=== PATIENT | male | born 1950 | race Caucasian/White ===

== ENCOUNTER 2018-02-24 15:20 | Emergency (ER) | payer OTHER ==
--- NOTE | 2018-02-24 16:35 | RAD REPORT ---
EXAM DESCRIPTION: RAD - Chest Single View - 02/24/2018 4:29 pm CLINICAL HISTORY: Cough, shortness of breath COMPARISON: August 2016 TECHNIQUE: AP portable chest image was obtained 1626 hours . FINDINGS: Interstitial fibrotic lung pattern present that matches the prior study. No superimposed f ailure, infiltrate or mass. Heart and vasculature are normal. No measurable pleural effusion and no p neumothorax. No acute bone finding suspected. Chronic degenerative change present at the right should er joint and AC joint. No acute aortic findings suspected. IMPRESSION: Chronic interstitial lung disease matching 2017 imaging. No acute findings seen.
[2018-02-24] MEDS ORDERED: IPRATROPIUM BROM 0.5MG/2.5ML ONE (16:36)
[2018-02-24] MEDS ORDERED: ALBUTEROL 2.5 MG/3 ML NEB SOL ONE (16:36)
[2018-02-24] MEDS ORDERED: HYDROCODONE/CHLORPHEN 5 ML/OSYR ONE (16:37)
--- NOTE | 2018-02-24 16:44 | EKG ---
Test Date: 2018-02-24 Test Time: 16:19:44 Mechanical Striper: MARGRET MEASUREMENT RESULTS: Intervals: Rate: 91 ID: [id number] QRSD: 118 QT: 386 QTc: 474 Dieterich: P: 67 ID: [id number] QRS: -5 T: 40 INTERPRETIVE STATEMENTS: Normal sinus rhythm Right bundle branch block Abnormal ECG Compared to ECG 08/29/2016 14:39:34 Myocardial infarct finding no longer present Electronically Signed On 02-24-18 16:43:42 CDT by Erlin Bland
[2018-02-24 16:54] LABS: Absolute Lymphocytes (CBC) 0.7 K/uL (0.7-4.9); Absolute Monocytes 0.5 K/uL (0.1-1.3); Absolute Neutrophil 5.6 K/uL (1.8-8.0); Basophils % 0.3 % (0-1.3); Eosinophils % 0.1 % (0-4.4); Hematocrit 37.6 % (39.6-49.0); Lymphocytes % 10.2 % (15.3-44.8); MCH 31.1 pg (27.0-35.0); MCV 93.2 fL (80-100); MPV 8.8 fL (7.6-11.3); Monocytes % 7.7 % (3.3-12.3); RBC Red Blood Cell Count 4.04 M/uL (4.33-5.43)
[2018-02-24 16:59] LABS: Protime INR 1.02
[2018-02-24 17:12] LABS: Albumin 3.7 g/dL (3.4-5.0); Bilirubin Direct 0.1 mg/dL (0-0.2); Bilirubin Total 0.5 mg/dL (0.2-1.0); CKMB Creatine Kinase MB 3.6 ng/mL (0.3-3.6); Magnesium 2.1 mg/dL (1.8-2.4); Protein, Total 7.4 g/dL (6.4-8.2)
[2018-02-24 18:36] LABS: Urine Blood NEGATIVE (NEG); Urine Glucose 2+ (NEG); Urine Protein NEGATIVE (NEG); Urine Specific Gravity >1.030 (1.005-1.030); Urine pH 5.5 (5.0-7.0)
--- NOTE | 2018-02-24 18:37 | RAD REPORT ---
EXAM DESCRIPTION: CT - Chest For Pe Angio - 02/24/2018 6:14 pm CLINICAL HISTORY: Shortness of breath COMPARISON: None. TECHNIQUE: Dynamically enhanced axial 3 mm thick images of the chest were obtained during administra tion of <100> mL Isovue 370 IV contrast. Coronal and oblique reconstruction images were generated and reviewed. Exam utilizes a protocol for optimal evaluation of pulmonary arterial tree. Maximum intensity projections 3D imaging was utilized All CT scans are performed using dose optimization technique as appropriate and may include automated exposure control or mA/KV adjustment according to patient size. FINDINGS: A pulmonary embolus is not seen. A thoracic aortic aneurysm is not noted. A pleural effusion is not seen. A pericardial effusion is not seen. A lung consolidation is not present. A minimal ground-glass opacity is present within the right upper lobe Fatty infiltration liver seen. IMPRESSION: Negative for a pulmonary embolism.
--- NOTE | 2018-02-24 18:41 | RAD REPORT ---
EXAM DESCRIPTION: CT - Abdomen Pelvis W Contrast - 02/24/2018 6:14 pm CLINICAL HISTORY: Abdominal pain COMPARISON: none. TECHNIQUE: Computed axial tomography of the abdomen pelvis was obtained. 100 cc Isovue-300 was admin istered intravenously. Oral contrast was not requested which limits evaluation of bowel. All CT scans are performed using dose optimization technique as appropriate and may include automated exposure control or mA/KV adjustment according to patient size. FINDINGS: The liver has a diminished attenuation consistent with fatty infiltration The spleen, pancreas, adrenals and kidneys appear unremarkable. . There is no evidence of diverticulitis. Postsurgical changes of a sigmoidectomy are seen. Spondylosis involves lumbar spine resulting in marked spinal stenosis IMPRESSION: No acute abnormality is displayed.
[2018-02-24] MEDS ORDERED: METHYLPREDNISOLONE 125 MG INJ ONE (18:56)
[2018-02-24] MEDS ORDERED: KETOROLAC 30 MG/ML INJ ONE (18:56)
--- NOTE | 2018-02-24 19:34 | EDPHYS ---
Physician Documentation [facility] Name: Krishan Coates Age: 68 yrs Sex: Male : 1950 Arrival Date: 02/24/2018 Time: 15:24 Bed 26 Private MD: None, None ED Physician Wilfredo Butler HPI: 02/24 16:12 This 68 yrs old Male presents to ER via Ambulatory with complaints of cp Shortness Of Breath. 16:12 The patient has shortness of breath with light activity. cp 16:12 Onset: The symptoms/episode began/occurred gradually, and became worse today. Duration: cp The symptoms are continuous, and are steadily getting worse. Associated signs and symptoms: Pertinent positives: productive cough, diaphoresis, nausea, lower right abdominal pain, Pertinent negatives: chest pain, fever, hemoptysis, vomiting. The symptoms do not radiate. Historical: - Allergies: 15:49 No Known Allergies; ph - Home Meds: 15:49 temazepam 30 mg Oral cap 1 cap once daily [Active]; levothyroxine 100 mcg tab 1 tab ph once daily [Active]; sildenafil 20 mg oral tab daily [Active]; pantoprazole 40 mg oral TbEC 1 tab once daily [Active]; cyclobenzaprine 10 mg Oral tab 1 tab four times a day [Active]; Rodney Chewable Aspirin 81 mg oral chew 1 tab once daily [Active]; nclwmtt-tgqcmeuwf-tjvbfxxzcucv 65-100-325 mg oral cap 1-2 caps q4h [Active]; Symbicort 160-4.5 mcg/actuation inhalation HFAA 2 puffs 2 times per day [Active]; Spiriva Respimat 2.5 mcg/actuation inhalation mist 2 puffs once daily [Active]; pravastatin 10 mg oral tab 1 tab once daily [Active]; prednisone 10 mg Oral tab 7 day taper [Active]; fludrocortisone 0.1 mg oral tab 1 tab once daily [Active]; Sumatriptan Sub-Q [Active]; - PMHx: 15:49 Asthma; Thyroid problem; COPD; Pneumonia; ph - PSHx: 20:09 None; bs1 - Immunization history:: Pneumococcal vaccine is up to date, Flu vaccine is up to date. - Social history:: Smoking status: Patient/guardian denies using tobacco. - Ebola Screening: : Patient negative for fever greater than or equal to 101.5 degrees Fahrenheit, and additional compatible Ebola Virus Disease symptoms Patient denies exposure to infectious person Patient reports travel to an Ebola-affected area in the 21 days before illness onset. Patient reports to have traveled to [place]. ROS: 16:13 Eyes: Negative for injury, pain, redness, and discharge. cp 16:13 Constitutional: Negative for body aches, chills, fever. 16:13 ENT: Negative for drainage from ear(s), ear pain, sore throat, difficulty swallowing, difficulty handling secretions. 16:13 Cardiovascular: Negative for chest pain, edema, palpitations. 16:13 Respiratory: Positive for cough, with clear sputum, shortness of breath, Negative for hemoptysis, wheezing. 16:13 Abdomen/GI: Positive for abdominal pain, of the right lower quadrant, Negative for vomiting, diarrhea, constipation, black/tarry stool, rectal bleeding. 16:13 Back: Negative for pain at rest, pain with movement, radiated pain. 16:13 : Negative for urinary symptoms. 16:13 Skin: Negative for cellulitis, rash. 16:13 Neuro: Negative for altered mental status, dizziness, headache, syncope, near syncope, weakness. 16:13 All other systems are negative. Exam: 16:18 Constitutional: The patient appears in no acute distress, alert, awake, cp non-diaphoretic, non-toxic, well developed, well nourished. 16:18 Head/Face: Normocephalic, atraumatic. Eyes: Pupils equal round and reactive to light, cp extra-ocular motions intact. Lids and lashes normal. Conjunctiva and sclera are non-icteric and not injected. Cornea within normal limits. Periorbital areas with no swelling, redness, or edema. ENT: Nares patent. No nasal discharge, no septal abnormalities noted. Tympanic membranes are normal and external auditory canals are clear. Oropharynx with no redness, swelling, or masses, exudates, or evidence of obstruction, uvula midline. Mucous membranes moist. Neck: Trachea midline, no thyromegaly or masses palpated, and no cervical lymphadenopathy. Supple, full range of motion without nuchal rigidity, or vertebral point tenderness. No Meningismus. Chest/axilla: Normal chest wall appearance and motion. Nontender with no deformity. No lesions are appreciated. 16:18 Cardiovascular: Rate: normal, Rhythm: regular, Pulses: Pulses are 2+ in right radial artery and left radial artery. Edema: is not appreciated, JVD: is not appreciated. 16:18 Respiratory: the patient does not display signs of respiratory distress, Respirations: cp normal, no use of accessory muscles, no retractions, no splinting, no tachypnea, labored breathing, is not present, Breath sounds: bronchial sounds, that are mild, are heard diffusely, decreased breath sounds, that are mild, throughout, stridor, is not appreciated, wheezing: is not appreciated. 16:18 Abdomen/GI: Inspection: abdomen appears normal, Bowel sounds: active, all quadrants, cp Palpation: soft, in all quadrants, moderate abdominal tenderness, in the right lower quadrant, rebound tenderness, is not appreciated, involuntary guarding, is elicited in the right lower quadrant. 16:18 Back: pain, is absent, ROM is normal. 16:18 Skin: cellulitis, is not appreciated, no rash present. 16:18 Neuro: Orientation: to person, place \T\ time. Mentation: lucid, able to follow commands, Cerebellar function: is grossly normal, Motor: moves all fours, strength is normal, Sensation: no obvious gross deficits, Gait: is steady. 16:24 ECG was reviewed by the Attending Physician. cp Vital Signs: 15:42 BP 159 / 84; Pulse 98; Resp 24; Temp 98.0(TE); Pulse Ox 94% on R/A; Weight 112.49 kg; ph Height 6 ft. 1 in. (185.42 cm); Pain 8/10; 17:21 BP 171 / 75; Pulse 93; Resp 26; Temp 98; Pulse Ox 99% on Nebulizer Mask; Pain 7/10; ch 18:29 BP 168 / 85; Pulse 110; Resp 26; Temp 98.3; Pulse Ox 95% on R/A; Pain 7/10; ch 19:30 BP 165 / 74; Pulse 90; Resp 20; Temp 98; Pulse Ox 94% on R/A; Pain 0/10; bs1 15:42 Body Mass Index 32.72 (112.49 kg, 185.42 cm) ph MDM: 15:59 Patient medically screened. cp 17:00 Differential diagnosis: CHF exacerbation, Chronic Obstructive Pulmonary Disease cp Myocardial Infarction pneumonia, pulmonary edema, appendicitis, bowel obstruction, diverticulitis. 19:30 Data reviewed: vital signs, nurses notes, lab test result(s), EKG, radiologic studies. 19:30 Test interpretation: by ED physician or midlevel provider: ECG, plain radiologic cp studies. 19:30 Counseling: I had a detailed discussion with the patient and/or guardian regarding: the cp historical points, exam findings, and any diagnostic results supporting the discharge/admit diagnosis, the presence of at least one elevated blood pressure reading (>120/80) during this emergency department visit, lab results, radiology results, the need for outpatient follow up, a family practitioner, to return to the emergency department if symptoms worsen or persist or if there are any questions or concerns that arise at home. Response to treatment: the patient's symptoms have markedly improved after treatment, and as a result, I will discharge patient. 02/24 16:12 Order name: Basic Metabolic Panel; Complete Time: 17:24 02/24 17:24 Interpretation: Normal except: CL 110; GLUC 226; BUN 21; GFR 60. 02/24 16:12 Order name: CBC with Diff; Complete Time: 17:24 18 17:24 Interpretation: Normal except: RBC 4.04; HGB 12.5; HCT 37.6; CANDY% 81.7; LYM% 10.2. 02/24 16:12 Order name: Ckmb; Complete Time: 17:24 cp 02/24 16:12 Order name: CPK; Complete Time: 17:24 02/24 19:27 Interpretation: CPK 447; Reviewed. 02/24 16:12 Order name: LFT's; Complete Time: 17:24 cp 02/24 16:12 Order name: Magnesium; Complete Time: 17:24 cp 02/24 16:12 Order name: NT PRO-BNP; Complete Time: 17:24 cp 18 17:25 Interpretation: Abnormal: NT PRO-BNP 229. 02/24 16:12 Order name: PT-INR; Complete Time: 17:24 cp 02/24 16:12 Order name: Ptt, Activated; Complete Time: 17:24 cp 02/24 16:12 Order name: Troponin (emerg Dept Use Only); Complete Time: 17:24 07/18 19:27 Interpretation: TROPED < 0.02; Reviewed. cp 02/24 16:12 Order name: XRAY Chest (1 view); Complete Time: 16:45 cp 02/24 16:45 Interpretation: Report review. cp 02/24 16:12 Order name: Lipase; Complete Time: 17:24 cp 02/24 16:27 Order name: D-Dimer; Complete Time: 17:50 cp 02/24 17:50 Interpretation: Abnormal: D-DIMER 1060. cp 02/24 18:31 Order name: Urine Dipstick--Ancillary (enter results); Complete Time: 19:09 bd 02/24 16:12 Order name: EKG; Complete Time: 16:13 cp 02/24 16:12 Order name: Cardiac monitoring; Complete Time: 16:32 cp 02/24 16:12 Order name: EKG - Nurse/Tech; Complete Time: 16:32 cp 02/24 16:12 Order name: IV Saline Lock; Complete Time: 17:19 cp 02/24 16:12 Order name: Labs collected and sent; Complete Time: 17:19 cp 02/24 16:12 Order name: O2 Per Protocol; Complete Time: 17:19 cp 02/24 16:12 Order name: O2 Sat Monitoring; Complete Time: 17:19 cp 02/24 17:46 Order name: CT Chest For PE Angio: no oral contrast; Complete Time: 19:09 cp 02/24 17:46 Order name: CT Abd/Pelvis - W/Contrast; Complete Time: 19:09 cp 18 19:10 Interpretation: Report reviewed. EC:24 Rate is 91 beats/min. Rhythm is regular. [place] interval is normal. QRS interval is cp prolonged at 118 msec. QT interval is normal. T waves are Flattened in lead V1. Interpreted by me. Reviewed by me. Administered Medications: 16:31 Drug: Albuterol - atroVENT (3:1) (2.5 mg - 0.5 mg) 3 ml Route: Nebulizer; ch 17:19 Follow up: Response: No adverse reaction ch 16:40 Drug: Tussionex Pennkinetic ER 5 ml Route: PO; ch 17:19 Follow up: Response: No adverse reaction; Marked relief of symptoms ch 18:57 Drug: SOLU-Medrol 125 mg Route: IVP; Site: right antecubital; kr2 20:06 Follow up: Response: No adverse reaction bs1 18:57 Drug: TORadol 30 mg Route: IVP; Site: right antecubital; kr2 20:06 Follow up: Response: No adverse reaction; Pain is decreased bs1 19:47 Drug: LevaQUIN 750 mg Route: PO; bs1 20:06 Follow up: Response: No adverse reaction bs1 Disposition: 02/24/18 19:33 Discharged to Home. Impression: Chronic obstructive pulmonary disease with acute lower respiratory infection. - Condition is Stable. - Discharge Instructions: Chronic Obstructive Pulmonary Disease, Upper Respiratory Infection, Adult. - Prescriptions for Levaquin 750 mg Oral Tablet - take 1 tablet by ORAL route once daily for 7 days start evening of 02-25-2018; 6 tablet. Guaifenesin AC 10- 100 mg/5 mL Oral Liquid - take 10 milliliters by ORAL route every 6 hours As needed; 240 milliliter. - Medication Reconciliation Form, Thank You Letter, Antibiotic Education, Prescription Opioid Use form. - Follow up: Private Physician; When: 2 - 3 days; Reason: Recheck today's complaints. - Problem is new. - Symptoms have improved. Addendum: 02/26/2018 20:00 Co-signature as Attending Physician, Wilfredo Butler MD I agree with the assessment and w a plan of care. Signatures: Dispatcher [employer] Ashlie Grider, RN Milena Beckwith ch RN RN Angelito Maher PA PA Wilfredo Dumont MD MD wa Reaves, Karey, RN RN kr2 Gabriella Magallanes RN RN bs1 Corrections: (The following items were deleted from the chart) 02/24 20:11 19:33 02/24/2018 19:33 Discharged to Home. Impression: Chronic obstructive pulmonary bs1 disease with acute lower respiratory infection. Condition is Stable. Forms are Medication Reconciliation Form, Thank You Letter, Antibiotic Education, Prescription Opioid Use. Follow up: Private Physician; When: 2 - 3 days; Reason: Recheck today's complaints. Problem is new. Symptoms have improved. cp
--- NOTE | 2018-02-24 19:34 | ER ---
Nurse's Notes [facility] Name: Krishan Coates Age: 68 yrs Sex: Male : 1950 Arrival Date: 02/24/2018 Time: 15:24 Bed 26 Private MD: None, None Diagnosis: Chronic obstructive pulmonary disease with acute lower respiratory infection Presentation: 02/24 15:39 Presenting complaint: Patient states: " I am feeling very SOB and when I cough I have a ph bad pain in my stomach." Pt reports cough that is productive, SOB and pain in R side of abdomen w/ cough, also reports chills last night, denies N/V/D, reports that he had pneumonia early this month, also reports hx of COPD, pt appears anxious but is able to speak in full sentences. Transition of care: patient was not received from another setting of care. Onset of symptoms was February 24, 2018. Risk Assessment: Do you want to hurt yourself or someone else? Patient reports no desire to harm self or others. Initial Sepsis Screen: Does the patient meet any 2 criteria? No. Patient's initial sepsis screen is negative. Care prior to arrival: None. 15:39 Method Of Arrival: Ambulatory ph 15:39 Acuity: FAHAD 3 ph 20:10 Initial Sepsis Screen: Does the patient have a suspected source of infection? No. bs1 Patient's initial sepsis screen is negative. Triage Assessment: 19:15 Respiratory: the patient has moderate shortness of breath. bs1 19:15 General: Appears in no apparent distress. comfortable. Respiratory: Airway is patent. bs1 Historical: - Allergies: 15:49 No Known Allergies; ph - Home Meds: 15:49 temazepam 30 mg Oral cap 1 cap once daily [Active]; levothyroxine 100 mcg tab 1 tab ph once daily [Active]; sildenafil 20 mg oral tab daily [Active]; pantoprazole 40 mg oral TbEC 1 tab once daily [Active]; cyclobenzaprine 10 mg Oral tab 1 tab four times a day [Active]; Rodney Chewable Aspirin 81 mg oral chew 1 tab once daily [Active]; fwjnxba-glbsbrkmb-suuzxxjubrlm 65-100-325 mg oral cap 1-2 caps q4h [Active]; Symbicort 160-4.5 mcg/actuation inhalation HFAA 2 puffs 2 times per day [Active]; Spiriva Respimat 2.5 mcg/actuation inhalation mist 2 puffs once daily [Active]; pravastatin 10 mg oral tab 1 tab once daily [Active]; prednisone 10 mg Oral tab 7 day taper [Active]; fludrocortisone 0.1 mg oral tab 1 tab once daily [Active]; Sumatriptan Sub-Q [Active]; - PMHx: 15:49 Asthma; Thyroid problem; COPD; Pneumonia; ph - PSHx: 20:09 None; bs1 - Immunization history:: Pneumococcal vaccine is up to date, Flu vaccine is up to date. - Social history:: Smoking status: Patient/guardian denies using tobacco. - Ebola Screening: : Patient negative for fever greater than or equal to 101.5 degrees Fahrenheit, and additional compatible Ebola Virus Disease symptoms Patient denies exposure to infectious person Patient reports travel to an Ebola-affected area in the 21 days before illness onset. Patient reports to have traveled to [place]. Screenin:59 Abuse screen: Denies threats or abuse. Denies injuries from another. Nutritional ch screening: No deficits noted. Tuberculosis screening: No symptoms or risk factors identified. Fall Risk None identified. Assessment: 15:59 General: Appears in no apparent distress. comfortable, Behavior is calm, cooperative, ch appropriate for age. Pain: Complains of pain in right lower quadrant Pain currently is 6 out of 10 on a pain scale. at worst was 9 out of 10 on a pain scale. Pain began suddenly, 1 day ago. Neuro: No deficits noted. Cardiovascular: Heart tones S1 S2 present Capillary refill < 3 seconds in bilateral fingers toes Clubbing of nail beds is present toes only. Patient's skin is warm and dry. Pulses are all present. Edema is absent. Rhythm is regular. Respiratory: Reports shortness of breath cough that is productive, hacking, persistent Airway is patent Trachea midline Respiratory effort is even, unlabored, Breath sounds are diminished bilaterally. Breath sounds with wheezes bilaterally. Onset: The symptoms/episode began/occurred yesterday. GI: Reports lower abdominal pain. : No signs and/or symptoms were reported regarding the genitourinary system. Derm: Skin is pink, warm \\T\\ dry. Musculoskeletal: No signs and/or symptoms reported regarding the musculoskeletal system. 17:21 Reassessment: Patient appears in no apparent distress at this time. Patient and/or ch family updated on plan of care and expected duration. Pain level reassessed. pt bed repositioned for pt comfort. 18:29 Reassessment: Patient appears in no apparent distress at this time. Patient and/or ch family updated on plan of care and expected duration. Pain level reassessed. pt states he feels like he can breathe better now. 19:10 Reassessment: Report received from ANNE MARIE Dailey. bs1 19:10 General: Appears in no apparent distress. comfortable, Behavior is calm, cooperative, bs1 appropriate for age. Pain: Complains of pain in abdomen and right lower quadrant Pain does not radiate. Pain currently is 7 out of 10 on a pain scale. Neuro: Level of Consciousness is awake, alert, obeys commands, Oriented to person, place, time, situation. Cardiovascular: Denies chest pain, shortness of breath, Heart tones S1 S2 present Capillary refill < 3 seconds Clubbing of nail beds is present Patient's skin is warm and dry. Respiratory: Reports shortness of breath cough that is productive, hacking, persistent Airway is patent Trachea midline Respiratory effort is even, unlabored, Breath sounds are diminished bilaterally. GI: Reports lower abdominal pain. : No deficits noted. EENT: No signs and/or symptoms were reported regarding the EENT system. Derm: Skin is intact, Skin is pink, warm \\T\\ dry. Skin temperature is warm. Musculoskeletal: No signs and/or symptoms reported regarding the musculoskeletal system. 20:00 Reassessment: Patient appears in no apparent distress at this time. Patient and/or bs1 family updated on plan of care and expected duration. Pain level reassessed. Patient is alert, oriented x 3, equal unlabored respirations, skin warm/dry/pink. Patient denies pain at this time. Patient states feeling better. Patient states symptoms have improved. Vital Signs: 15:42 BP 159 / 84; Pulse 98; Resp 24; Temp 98.0(TE); Pulse Ox 94% on R/A; Weight 112.49 kg; ph Height 6 ft. 1 in. (185.42 cm); Pain 8/10; 17:21 BP 171 / 75; Pulse 93; Resp 26; Temp 98; Pulse Ox 99% on Nebulizer Mask; Pain 7/10; ch 18:29 BP 168 / 85; Pulse 110; Resp 26; Temp 98.3; Pulse Ox 95% on R/A; Pain 7/10; ch 19:30 BP 165 / 74; Pulse 90; Resp 20; Temp 98; Pulse Ox 94% on R/A; Pain 0/10; bs1 15:42 Body Mass Index 32.72 (112.49 kg, 185.42 cm) ph ED Course: 15:24 Patient arrived in ED. sb2 15:24 None, None is Private Physician. sb2 15:41 Triage completed. ph 15:47 Ashlie García, RN is Primary Nurse. ch 15:50 Arm band placed on. ph 15:59 Angelito Lopes PA is PHCP. cp 15:59 Wilfredo Butler MD is Attending Physician. cp 15:59 No apparent distress. pt appears anxious, when talking on phone pt can speak full ch sentences. 15:59 Patient has correct armband on for positive identification. Placed in gown. Bed in low ch position. Call light in reach. Side rails up X 1. psych therapist on. Pulse ox on. NIBP on. Door closed. Noise minimized. Warm blanket given. 15:59 No provider procedures requiring assistance completed. ch 16:27 EKG done, by appraisal technician. reviewed by Angelito LOVE. 3 16:29 X-ray completed. Portable x-ray completed in exam room. Patient tolerated procedure kp1 well. 16:30 XRAY Chest (1 view) In Process Unspecified. EDMS 16:40 Inserted saline lock: 20 gauge in right wrist, using aseptic technique. Blood collected.ch 18:14 CT Chest For PE Angio: no oral contrast In Process Unspecified. EDMS 18:14 CT Abd/Pelvis - W/Contrast In Process Unspecified. EDMS 20:07 IV discontinued, bleeding controlled, No redness/swelling at site. Pressure dressing bs1 applied. Administered Medications: 16:31 Drug: Albuterol - atroVENT (3:1) (2.5 mg - 0.5 mg) 3 ml Route: Nebulizer; ch 17:19 Follow up: Response: No adverse reaction ch 16:40 Drug: Tussionex Pennkinetic ER 5 ml Route: PO; ch 17:19 Follow up: Response: No adverse reaction; Marked relief of symptoms ch 18:57 Drug: SOLU-Medrol 125 mg Route: IVP; Site: right antecubital; kr2 20:06 Follow up: Response: No adverse reaction bs1 18:57 Drug: TORadol 30 mg Route: IVP; Site: right antecubital; kr2 20:06 Follow up: Response: No adverse reaction; Pain is decreased bs1 19:47 Drug: LevaQUIN 750 mg Route: PO; bs1 20:06 Follow up: Response: No adverse reaction bs1 Outcome: 19:33 Discharge ordered by . ana maria 20:07 Discharged to home ambulatory. bs1 20:07 Condition: stable 20:07 Discharge instructions given to patient, Instructed on discharge instructions, follow up and referral plans. medication usage, Demonstrated understanding of instructions, follow-up care, medications, Prescriptions given X 2. 20:11 Patient left the ED. bs1 Signatures: Dispatcher [employer] EDMS Ashlie García, RN RN Milena Randolph RN RN Angelito Maher PA PA cp Poole, Kathy kp1 Yaritza Mark RN RN kr2 Gabriella Magallanes RN RN bs1 Dalia Capellan2 Alisson Harris 3
[2018-02-24] MEDS ORDERED: levoFLOXacin 750 MG TAB ONE (19:47)
== END 2018-02-24 20:11 | disposition home or self-care (01) ==
LOC: ER 15:20
DX: J44.0 Chronic obstructive pulmonary disease with (acute) lower respiratory infection (principal); E07.9 Disorder of thyroid, unspecified; Z79.82 Long term (current) use of aspirin
CPT/HCPCS: 36415; 71045; 71275; 74177; 80048; 80076; 81003; 82550; 82553; 83690; 83735; 83880; 84484; 85025; 85379; 85610; 85730; 93005; J2930; Q9967; 94640; 96374; 96375; 99285